=== PATIENT | male | born 1990 | race Two or more races ===

== ENCOUNTER 2023-07-18 00:51 | Emergency (ER) | payer SELFPAY ==
--- NOTE | ~2023-07-18 | XR_ITS ---
EXAMINATION: XR CHEST CLINICAL INFORMATION: Shortness of breath. COMPARISON: None available. TECHNIQUE: 2 views of the chest were obtained. FINDINGS: The cardiomediastinal silhouette is within normal limits. There are bilateral lower lung field posterior infiltrates. There are no significant pleural effusions. The bony structures and soft tissues are unremarkable. XR/XR chest 2V IMPRESSION: Bilateral lower lung field posterior infiltrates most consistent with pneumonia.
[2023-07-18 00:59] VITALS: BP 136/86; PULSE 104; O2SAT 94
[2023-07-18 01:03] VITALS: BP 125/78; PULSE 90; RESP 11; O2SAT 76; BMI 24.4
[2023-07-18 01:09] VITALS: BP 125/78; PULSE 96; RESP 14; TEMP 36.4; O2SAT 80
--- NOTE | 2023-07-18 02:17 | ECG_ITS ---
Test Reason : CHEST PAIN Blood Pressure : / mmHG Vent. Rate : 093 BPM Atrial Rate : 093 BPM P-R Int : 130 ms QRS Dur : 084 ms QT Int : 366 ms P-R-T Axes : 066 051 038 degrees QTc Int : 455 ms Normal sinus rhythm Nonspecific ST abnormality Borderline ECG No previous ECGs available Referred By: Isadora Friedman Electronically Signed By:LAZ JACKSON
--- NOTE | 2023-07-18 02:29 | ED.OVERDOSE ---
HPI - Overdose General Chief Complaint: Overdose Stated Complaint: Overdose Time Seen by Provider: 07/18/23 01:50 Source: patient, family and EMS Mode of arrival: EMS History of Present Illness HPI Narrative: 33-year-old male who is brought in by EMS after they were called by his mother for finding him unresponsive with good pulse but almost no respiration, patient states that he took some dope and denies any suicidal ideation. Narcan was given by the fire department and at the time of EMS arrival patient was alert calm and cooperative. Related Data Previous Rx's Medication Instructions Recorded amoxicillin 875 mg-potassium 1 tab PO BID 5 days #10 tabs 07/18/23 clavulanate 125 mg tablet Allergies Allergy/AdvReac Type Severity Reaction Status Date / Time No Known Allergies Allergy Unverified 07/18/23 01:01 Review of Systems Review of Systems: Pertinent positives and negatives as stated in HPI PMFSH Past Medical History Source: nursing notes reviewed Social History Social History Advance Directives: No Advance Directives Information Provided: No Physical Exam Vital Signs: Vital Signs: Last Vital Signs Temp 98.0 F 07/18/23 04:53 Pulse 74 07/18/23 04:53 Resp 11 L 07/18/23 04:53 BP 113/62 07/18/23 04:53 Pulse Ox 95 07/18/23 04:53 O2 Del Method Room Air 07/18/23 04:53 O2 Flow Rate 2 07/18/23 01:09 BMI result Body Mass Index 24.4 VITAL SIGNS: Reviewed. GENERAL: Well developed, well nourished, in no acute distress. HEAD: Normocephalic/atraumatic EYES: PERRLA, EOMI EARS: Ext canals without abnormality NOSE: Nares patent bilateral OROPHARYNX: no oral lesions noted, posterior pharynx clear NECK: Supple, no adenopathy LUNGS: Normal breath sounds. No adventitious sounds or accessory muscle use. SpO2<80> on room air and after applying 3 L via nasal cannula respirations have significantly improved CARDIOVASCULAR: Regular rate and rhythm without noted murmurs ABDOMEN: Soft, non-tender, non-distended with bowel sounds. MUSCULOSKELETAL: No tenderness, deformities, or effusions noted on gross inspection. EXTREMITIES: No cyanosis, clubbing or edema. SKIN: Inspection of the skin reveals no rashes NEUROLOGIC: Alert and oriented x 3. Strength and sensation to light touch were grossly intact x 4. Medical Decision Making Medical Decision Making [facility] Narrative: 33-year-old male with history and clinical presentation consistent with accidental overdose, denies detox at this time and denies any attempts to and does life. Patient is noted to be persistently hypoxic and is maintaining 92% on 3 L via nasal cannula. Will proceed with viral testing and two view chest x-ray. Viral testing negative for COVID-19/influenza. Chest x-ray significant for infiltrate and likely explains patient's initial difficulty with hypoxia. He is now oxygenating well on room air, he is eating and drinking and will be discharged home, his mother will be taking him and he will be discharged with home Narcan. Differential Diagnosis Differential Diagnoses: The differential diagnosis associated with the presentation includes Please see the discussion above Admission/Observation Consideration of admission/observation: Escalation of care including admission/observation considered Please see the discussion above Lab Data [facility] Lab Attestation statement: I reviewed the patient's lab results. Please see the discussion above Labs: Lab Results 07/18/23 Range/Units 02:30 COVID-19 (QUENTIN) Negative (Negative) COVID-19 Clin Com See Note Influenza Type A (AKHIL) Negative (Negative) Influenza Type B (AKHIL) Negative (Negative) Influenza A & B Note See Note Independent Interpretation I performed an independent interpretation of an: EKG Interpretation: Normal sinus rhythm, HR-93, no STEMI, IL/QRS/QTC is within normal limits. Radiology Impression Discussion of test interpretation with radiology: I have reviewed the radiologist's reading. Radiologist Impression: Please see the discussion above Chronic Conditions Patient?s care impacted by: Other Polysubstance abuse Critical Care Time Critical Care Time Critical Care Time: Yes Total Critical Care Time: 45 Attestation: I personally attest to this time spent taking care of the patient. Discharge Plan Discharge Clinical Impression: Drug overdose, Pneumonia Patient Disposition: Home, Self-Care Instructions: Pneumonia (ED), Adult Overdose (ED) Additional Instructions: 1. Complete the entire course of antibiotics as prescribed. 2. Follow-up with your primary care doctor. Prescriptions: New amoxicillin-pot clavulanate 875-125 mg tablet 1 tab PO BID 5 Days Qty: 10 0RF
[2023-07-18 03:13] LABS: COVID-19 Test Negative (Negative); IDNOW Serial# 08D9AD1C; IDNOW Serial# BCCEAD1C; Influenza A Negative (Negative); Influenza B2 Negative (Negative)
[2023-07-18 04:53] VITALS: BP 113/62; PULSE 74; RESP 11; TEMP 36.7; O2SAT 95
[2023-07-18] MEDS: Amoxicillin/Potassium Clav 875 MG TABLET PO (06:18)
[2023-07-18] MEDS: Naloxone HCl Nasal TAKE HOME 4 MG SPRAY 8 MG NOSTRILALT (06:22)
== END 2023-07-18 06:46 | disposition home or self-care (01) ==
PROVIDERS: Emergency Provider Student in an Organized Health Care Education/Training Program
DX: T50.901A Poisoning by unspecified drugs, medicaments and biological substances, accidental (unintentional), initial encounter (principal); Y92.9 Unspecified place or not applicable; J18.9 Pneumonia, unspecified organism; Z11.52 Encounter for screening for COVID-19
CPT/HCPCS: 71046; 87502; 87635; 93005; 99283; 99285

== ENCOUNTER → 2023-07-18 02:17 | Outpatient (BNV) | payer SELFPAY | PROVIDERS: Emergency Provider Student in an Organized Health Care Education/Training Program; Visit Provider Internal Medicine | DX: R07.9 Chest pain, unspecified (principal) | CPT/HCPCS: 93010 ==

== ENCOUNTER 2024-01-03 03:07 | Emergency (ER) | payer OTHER, SELFPAY ==
--- NOTE | ~2024-01-03 | CT_ITS ---
EXAMINATION: CT ABDOMEN AND PELVIS WITHOUT CONTRAST CLINICAL INFORMATION: Unremarkable study. COMPARISON: None available. TECHNIQUE: Multidetector volumetric imaging was performed from the superior aspect of the liver through the pubic symphysis. Sagittal and coronal reformatted images were obtained on the technologist's workstation. This CT examination was performed using dose optimization techniques as appropriate, variously including the following: *Automated exposure control *Adjustment of mA and/or kV according to patient size (this includes techniques or standardized protocols for targeted exams where dose is matched to indication/reason for exam; i.e. extremities or head) *Use of iterative reconstruction technique DLP: 523 mGy-cm FINDINGS: LUNG BASES: The visualized lung bases are unremarkable. LIVER, GALLBLADDER, AND BILIARY TREE: The liver is normal in size, shape, and attenuation. No focal hepatic lesion or biliary ductal dilatation is present. The gallbladder is unremarkable with no evidence of radiopaque gallstones, gallbladder wall thickening, or obvious pericholecystic inflammatory changes. PANCREAS: Unremarkable. SPLEEN: Unremarkable. ADRENAL GLANDS: Unremarkable. KIDNEYS AND URETERS: The kidneys are normal in size, shape, and attenuation. No hydronephrosis, hydroureter, or calculi seen. No perinephric stranding. BLADDER: Unremarkable. GASTROINTESTINAL TRACT: No bowel obstruction. Appendix normal. Large stool burden within the colon. No right or left lower quadrant inflammatory change observed. ABDOMINAL WALL: No significant hernia is appreciated. LYMPH NODES: Normal. VASCULAR: Unremarkable. PELVIC VISCERA: Unremarkable. OSSEOUS STRUCTURES: Minor chronic endplate changes observed at the thoracolumbar junction. CT/CT abdomen pelvis wo IV con IMPRESSION: No acute findings. Right hydronephrosis. A source for this patient's right lower quadrant pain is not been discovered on this exam. Fleischner guidelines were followed.
[2024-01-03 03:16] VITALS: BP 127/79; PULSE 61; RESP 20; TEMP 36.3; O2SAT 98; BMI 24.4
[2024-01-03 03:39] LABS: MANUAL DIFF FLAG NO
[2024-01-03 03:40] LABS: Basophils Percent Auto 0.5 % (0-2); Eosinophils Absolute Auto 0.1 X10*3/uL (0.0-0.4); Eosinophils Percent Auto 1.4 % (0-4); Hematocrit 47.2 % (42.0-52.0); Hemoglobin 16.1 g/dl (14.0-18.0); Imm Gran Abs Auto 0.04 X10*3/uL (0.00-0.03); Imm Gran Pct Auto 0.5 % (0.0-0.4); Lymphocytes Absolute Auto 2.8 X10*3/uL (1.2-4.9); Lymphocytes Percent Auto 36.6 % (20-40); Mean Corpuscular HGB Conc 34.1 g/dl (31.0-36.0); Mean Platelet Volume 10.4 fL (9.4-12.4); Monocytes Absolute Auto 0.5 X10*3/uL (0.1-1.2); Monocytes Percent Auto 6.5 % (2-11); Neutrophils Absolute Auto 4.2 x10*3/uL (2.0-8.3); Neutrophils Percent Auto 54.5 % (45-73); Platelet Count 189 X10*3/uL (160-400); Red Blood Count 5.55 X10*6/uL (4.60-5.80); White Blood Count 7.6 X10*3/uL (4.8-10.8)
[2024-01-03 03:41] VITALS: BP 136/80; PULSE 72; RESP 16; TEMP 36.6; O2SAT 97
[2024-01-03 03:41] LABS: Appearance Urine Clear; Color Urine Yellow; Glucose Urine UA Negative (Negative); Leukocyte Esterase Urine Negative (Negative); Nitrite Urine Negative (Negative); Urine Blood Negative (Negative); Urine Ketones Negative (Negative); Urine Protein Negative (Neg-Trace)
[2024-01-03 03:59] LABS: Alanine Aminotransferase 72 U/L (0-40); Albumin Level 4.3 g/dL (3.5-5.0); Alkaline Phosphatase 62 U/L (39-117); Anion Gap 10 (12-20); Aspartate Amino Transferase 49 U/L (5-37); Bilirubin Direct 0.2 mg/dL (0.0-0.5); Bilirubin Total 0.4 mg/dL (0.0-1.0); Blood Urea Nitrogen 17 mg/dL (9-16); Calcium 9.6 mg/dL (8.4-10.2); Carbon Dioxide 30 mmol/L (22-29); Chloride 104 mmol/L (96-108); Creatinine Clr Calc Pharmacy 102.3; Estimated Glomerular Filt Rate > 60; Glucose Random 90 mg/dL (60-115); Lipase 23 U/L (8-78); Potassium 3.9 mmol/L (3.3-5.1); Sodium 140 mmol/L (135-145); Total Protein 7.2 g/dL (6.5-8.0)
[2024-01-03 05:58] VITALS: BP 120/79; PULSE 91; RESP 16; TEMP 36.5; O2SAT 98
--- NOTE | 2024-01-03 06:56 | ED.ABDPAIN ---
HPI - Abdominal Pain General Chief Complaint: Abdominal Pain Stated Complaint: side pain Time Seen by Provider: 01/03/24 06:31 Source: patient Mode of arrival: ambulatory Limitations: no limitations History of Present Illness ED Provider: Clary Garcia PA-C HPI narrative: 33-year-old male presents the ER for evaluation of intermittent, worsening right-sided flank pain for the last couple of weeks. 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 It is sharp and associated with nausea but no vomiting. States he also has been having trouble emptying his bladder and has some discomfort when he urinates. No blood in his urine. He has been constipated lately. No fevers or chills. MD elicited complaint: abdominal pain and flank pain Onset (ago): week(s) Pain Consistency: intermittent Location: R flank Severity: moderate Quality: stabbing Radiation: RLQ Migration to: no migration Exacerbating factors: nothing Relieving factors: movement Associated symptoms: nausea Related Data Previous Rx's ?Medication ?Instructions ?Recorded amoxicillin 875 mg-potassium 1 tab PO BID 5 days #10 tabs 07/18/23 clavulanate 125 mg tablet Allergies Allergy/AdvReac Type Severity Reaction Status Date / Time No Known Allergies Allergy Verified 01/03/24 03:19 Review of Systems Review of Systems Yes all other systems are reviewed and are negative [facility] Social History Social History Substance Use Type: Heroin Advance Directives: No Advance Directives Information Provided: Yes Do you have a plan to hurt others: No Plan Physical Exam ED Vital Signs: Vital Signs - 24 hr 01/03/24 03:16 01/03/24 03:41 01/03/24 05:58 Temperature 97.4 F 97.8 F 97.7 F Pulse Rate 61 72 91 Respiratory Rate 20 16 16 Blood Pressure 127/79 136/80 120/79 Pulse Oximetry 98 97 98 Oxygen Delivery Method Room Air Room Air Room Air 01/03/24 09:18 Temperature 0 F L Pulse Rate 0 L Respiratory Rate 0 L Blood Pressure 00/00 L Pulse Oximetry 0 L Oxygen Delivery Method BMI result Body Mass Index 24.4 Appearance: Alert. Oriented X3. No acute distress. Head: normocephalic, atraumatic. Eyes: Pupils equal, round and reactive to light. ENT: Pharynx normal. No tonsillar swelling or exudate. Neck: Normal inspection. Neck supple. CVS: Normal heart rate and rhythm. Pulses normal. Respiratory: No respiratory distress. Breath sounds normal. Abdomen: Soft and nontender. +BS x4. +CVA tenderness on the right Skin: Skin warm and dry. Normal skin color. Normal skin turgor. No rashes. Extremities: No lower extremity edema. No joint swelling. Neuro/psych: Oriented X 3. No motor deficit. No sensory deficit. CN II-XII intact. Normal speech and cognition. Medical Decision Making Medical Decision Making [facility] [place] Narrative: 33 yo male presenting with right flank pain and RLQ pain for the past couple of weeks, acutely worse last night. now has no pain, nontender RLQ on exam. +CVA tenderness. low suspicion for appendicitis. labs showing mild elevation of LFTs, no leukocytosis. Urinalysis is negative for blood and infection. CT scan of the abdomen was performed showing right-sided hydronephrosis. No ureteral stones appreciated. No other acute abnormalities. He has a large stool burden in his colon. No evidence of bowel obstruction. Patient most likely recently experienced a kidney stone and passed it on his own. Patient was explained the results of his testing. He remains pain-free at this time. He is stable for discharge home Differential Diagnosis Differential Diagnoses: The differential diagnosis associated with the presentation includes UTI, pyelonephritis, kidney stone, acute appendicitis, STI Lab Data [facility] [place] Lab Attestation statement: I reviewed the patient's lab results. No leukocytosis, mild elevation of transaminases, normal renal function 01/03/24 03:34 01/03/24 03:34 Labs: Lab Results 01/03/24 Range/Units 03:34 WBC 7.6 (4.8-10.8) X10*3/uL RBC 5.55 (4.60-5.80) X10*6/uL Hgb 16.1 (14.0-18.0) g/dl Hct 47.2 (42.0-52.0) % MCV 85.0 (80.0-98.0) fL MCH 29.0 (27.0-33.0) pg MCHC 34.1 (31.0-36.0) g/dl RDW 13.0 (11.0-16.0) % Plt Count 189 (160-400) X10*3/uL MPV 10.4 (9.4-12.4) fL Immature Gran % (Auto) 0.5 H (0.0-0.4) % Neut % (Auto) 54.5 (45-73) % Lymph % (Auto) 36.6 (20-40) % Bath % (Auto) 6.5 (2-11) % Eos % (Auto) 1.4 (0-4) % Baso % (Auto) 0.5 (0-2) % Lymph # (Auto) 2.8 (1.2-4.9) X10*3/uL Bath # (Auto) 0.5 (0.1-1.2) X10*3/uL Eos # (Auto) 0.1 (0.0-0.4) X10*3/uL Baso # (Auto) 0.0 (0.0-0.2) X10*3/uL Abs Immat Gran (auto) 0.04 H (0.00-0.03) X10*3/uL Absolute Neuts (auto) 4.2 (2.0-8.3) x10*3/uL Absolute Nucleated RBC 0.000 (0.0-0.012) X10*3/uL Nucleated RBC % (auto) 0.0 (0.0-0.2) /100WBC Sodium 140 (135-145) mmol/L Potassium 3.9 (3.3-5.1) mmol/L Chloride 104 (96-108) mmol/L Carbon Dioxide 30 H (22-29) mmol/L Anion Gap 10 L (12-20) BUN 17 H (9-16) mg/dL Creatinine 1.06 (0.5-1.4) mg/dL Estim Creat Clear Calc 102.3 Estimated GFR > 60 Random Glucose 90 (60-115) mg/dL Calcium 9.6 (8.4-10.2) mg/dL Total Bilirubin 0.4 (0.0-1.0) mg/dL Direct Bilirubin 0.2 (0.0-0.5) mg/dL AST 49 H (5-37) U/L ALT 72 H (0-40) U/L Alkaline Phosphatase 62 (39-117) U/L Total Protein 7.2 (6.5-8.0) g/dL Albumin 4.3 (3.5-5.0) g/dL Lipase 23 (8-78) U/L Urine Color Yellow Urine Appearance Clear Urine pH 7.0 (5.0-9.0) Ur Specific [place] 1.020 (1.005-1.025) Urine Protein Negative (Neg-Trace) mg/dL Urine Glucose (UA) Negative (Negative) mg/dL Urine Ketones Negative (Negative) mg/dL Urine Blood Negative (Negative) Urine Nitrite Negative (Negative) Ur Leukocyte Esterase Negative (Negative) Independent Interpretation I performed an independent interpretation of an: CT Scan Interpretation: Mild right-sided hydronephrosis without any ureteral stone, no air-fluid levels in the colon, agree with radiology read Radiology Impression Discussion of test interpretation with radiology: I have reviewed the radiologist's reading. Radiologist Impression: EXAMINATION: CT ABDOMEN AND PELVIS WITHOUT CONTRAST CLINICAL INFORMATION: Unremarkable study. COMPARISON: None available. TECHNIQUE: Multidetector volumetric imaging was performed from the superior aspect of the liver through the pubic symphysis. Sagittal and coronal reformatted images were obtained on the technologist's workstation. This CT examination was performed using dose optimization techniques as appropriate, variously including the following: *Automated exposure control *Adjustment of mA and/or kV according to patient size (this includes techniques or standardized protocols for targeted exams where dose is matched to indication/reason for exam; i.e. extremities or head) *Use of iterative reconstruction technique DLP: 523 mGy-cm FINDINGS: LUNG BASES: The visualized lung bases are unremarkable. LIVER, GALLBLADDER, AND BILIARY TREE: The liver is normal in size, shape, and attenuation. No focal hepatic lesion or biliary ductal dilatation is present. The gallbladder is unremarkable with no evidence of radiopaque gallstones, gallbladder wall thickening, or obvious pericholecystic inflammatory changes. PANCREAS: Unremarkable. SPLEEN: Unremarkable. ADRENAL GLANDS: Unremarkable. KIDNEYS AND URETERS: The kidneys are normal in size, shape, and attenuation. No hydronephrosis, hydroureter, or calculi seen. No perinephric stranding. BLADDER: Unremarkable. GASTROINTESTINAL TRACT: No bowel obstruction. Appendix normal. Large stool burden within the colon. No right or left lower quadrant inflammatory change observed. ABDOMINAL WALL: No significant hernia is appreciated. LYMPH NODES: Normal. VASCULAR: Unremarkable. PELVIC VISCERA: Unremarkable. OSSEOUS STRUCTURES: Minor chronic endplate changes observed at the thoracolumbar junction. CT/CT abdomen pelvis wo IV con IMPRESSION: No acute findings. Right hydronephrosis. A source for this patient's right lower quadrant pain is not been discovered on this exam. External Record Review External record reviewed: Outpatient record, Prior outpatient labs and Prior outpatient radiology Prescription Management I considered prescription management with: Pain Medication and Antibiotic Critical Care Time Critical Care Time Critical Care Time: No Discharge Plan Discharge Clinical Impression: Acute right flank pain, Hydronephrosis, right Patient Disposition: Home, Self-Care Instructions: Acute Abdominal Pain (DC), Hydronephrosis (ED) Additional Instructions: Your urine test was negative for infection. Your CT scan showed some mild swelling of the right kidney, this is common after a person passes a kidney stone. Most likely recently passed a kidney stone which was causing her pain. Your CT scan also shows large amount of stool in the colon, recommend [id number] laxatives, this could be contributing to your abdominal discomfort as well. Drink plenty of fluids. Follow-up with your doctor. If you have ongoing right-sided flank pain you should get evaluated by Urology to further investigate other causes of hydronephrosis of the right kidney If you develop new or worsening symptoms call 911 or come back to the ER for further evaluation. CT/CT abdomen pelvis wo IV con IMPRESSION: No acute findings. Right hydronephrosis. A source for this patient's right lower quadrant pain is not been discovered on this exam. Prescriptions: No Action amoxicillin-pot clavulanate 875-125 mg tablet 1 tab PO BID 5 Days Qty: 10 0RF Referrals: [facility] [place] Urology Services [Provider Group] (Right-sided hydronephrosis) Interventions: ED Discharge Assessment Last Done: 01/03/24 09:18 Discharge Date/Time: 01/03/24 09:19 Print Language: [place]
[2024-01-03 09:18] VITALS: BP 00/00; PULSE 0; RESP 0; TEMP -17.7; TEMP 0; O2SAT 0
== END 2024-01-03 09:19 | disposition home or self-care (01) ==
PROVIDERS: Emergency Provider Emergency Medicine
DX: R10.9 Unspecified abdominal pain (principal); N13.30 Unspecified hydronephrosis
CPT/HCPCS: 36415; 74176; 80048; 80076; 81003; 83690; 85025; 99284